=== PATIENT | male | born 1960 | race Caucasian/White ===

== ENCOUNTER → 2016-11-08 | Outpatient (CLI) | payer MEDICARE ==
[~2016-11-08] MED LIST: COUM5TAB PO; LOMO PO; SERO100T PO; SERT-129 OR; SIMV20TA OR; WARF7.5 PO
[2016-11-08 13:15] LABS: AUTOMATED NEUTROPHIL # 4.4 TH/MM3 (1.8-7.7); BASOPHIL # 0.1 TH/MM3 (0-0.2); BASOPHIL % 0.8 % (0.0-2.0); EOSINOPHIL # 0.1 TH/MM3 (0-0.4); HEMATOCRIT 41.2 % (39.0-51.0); HEMO FLAGS DIFF FINAL; LYMPH % 23.6 % (9.0-44.0); LYMPHOCYTE # 1.6 TH/MM3 (1.0-4.8); MEAN CELL VOLUME 83.8 FL (80.0-100.0); MEAN CORPUSCULAR HEMOGLOBIN 28.4 PG (27.0-34.0); MEAN CORPUSCULAR HGB CONC 33.9 % (32.0-36.0); NEUT % 63.6 % (16.0-70.0); PLATELET COUNT 233 TH/MM3 (150-450); RED BLOOD COUNT 4.92 MIL/MM3 (4.50-5.90); RED CELL DISTRIBUTION WIDTH 13.2 % (11.6-17.2); WHITE BLOOD COUNT 6.8 TH/MM3 (4.0-11.0)
[2016-11-08 13:36] LABS: ANION GAP 7 MEQ/L (5-15); AST (GOT) 17 U/L (15-37); BICARBONATE 23.9 MEQ/L (21.0-32.0); BLOOD UREA NITROGEN 16 MG/DL (7-18); CHLORIDE 105 MEQ/L (98-107); GLOMERULAR FILTRATION RATE 106 ML/MIN (>89); GLUCOSE,FASTING 85 MG/DL (74-99); POTASSIUM 3.7 MEQ/L (3.5-5.1); SODIUM (NA) 136 MEQ/L (136-145)
[2016-11-08 13:42] LABS: ALKALINE PHOSPHATASE 96 U/L (45-117); ALT (GPT) 30 U/L (12-78); TOTAL BILIRUBIN ADULT 0.7 MG/DL (0.2-1.0)
--- NOTE | 2016-11-09 13:03 | EKG ---
Date Performed: 11/08/2016 Time Performed: 12:37:39 PTAGE: 55 years EKG: Sinus rhythm WITH SINUS ARRHYTHMIA Compared to previous tracing, previously seen T wave changes have improved NOR MAL ECG PREVIOUS TRACING : 03/17/2010 13.07 DOCTOR: Ravinder Lopez Interpretating Date/Time 11/09/2016 13:02:46
== END ==
LOC: CLAB 11:36
DX: F90.2 Attention-deficit hyperactivity disorder, combined type (principal); F31.9 Bipolar disorder, unspecified; I49.8 Other specified cardiac arrhythmias
CPT/HCPCS: 36415; 80053; 84146; 85025; 93005

== ENCOUNTER 2017-02-13 10:00 | Inpatient (IN) | payer MEDICARE, OTHER ==
[~2017-02-13] VITALS: Ht 167.6 cm; Wt 90.0 kg
[2017-02-13 10:02] VITALS: BP 143/68; PULSE 48; RESP 15; TEMP 98.4; O2SAT 96
--- NOTE | 2017-02-13 10:42 | PD ---
HPI Chief Complaint: Injury Time Seen by Provider: 10:39 Travel History International Travel<30 days: No Contact w/Intl Traveler<30days: No Traveled to known affect area: No History of Present Illness HPI 56-year-old male presents to emergency Department with complaint of left lateral ankle pain after slipping on wet concrete falling. He denies hitting his head or loss of consciousness. Denies neck pain or back pain. Denies chest pain, shortness breath, abdominal pain, vomiting. Denies lightheaded, dizziness, headache. Denies anticoagulant therapy. Denies other extremity pain. Rates pain 7/10. Describes it as a throbbing sensation. Unable to ambulate on the affected extremity. Denies paresthesias, loss of sensation to the affected extremity. Has not taken any medications to alleviate his symptoms. Has ice pack to the left ankle. Pain is aggravated with palpation and movement. Has no other medical complaints. No known allergies. No other modifying factors or associated signs and symptoms. PFSH Past Medical History Arthritis: No Asthma: No Autoimmune Disease: No Blood Disorders: No Anxiety: No Depression: No Heart Rhythm Problems: No Cancer: No Cardiovascular Problems: No High Cholesterol: Yes Chest Pain: No Congestive Heart Failure: No COPD: No Cerebrovascular Accident: No Diabetes: No Diminished Hearing: No Endocrine: No Glaucoma: No Genitourinary: No Headaches: No Hepatitis: No Hiatal Hernia: No Hypertension: No Immune Disorder: No Kidney Stones: No Musculoskeletal: No Neurologic: Yes Psychiatric: Yes Reproductive: No Respiratory: No Migraines: No Myocardial Infarction: No Renal Failure: No Seizures: Yes Sickle Cell Disease: No Sleep Apnea: No Thyroid Disease: No Ulcer: No Past Surgical History Abdominal Surgery: No AICD: No Appendectomy: No Arteriovenous Shunt: No Cholecystectomy: No Ear Surgery: No Eye Surgery: Yes (cataract sx left eye. blind in rt eye.) Genitourinary Surgery: No Gynecologic Surgery: No Insulin Pump: No Joint Replacement: No Oral Surgery: No Pacemaker: No Thoracic Surgery: No Other Surgery: Yes Social History Alcohol Use: No Tobacco Use: No Substance Use: No Allergies-Medications (Allergen,Severity, Reaction): Coded Allergies: No Known Allergies (Verified , 05/27/10) Reported Meds & Prescriptions Reported Meds & Active Scripts Active Reported Coumadin (Warfarin Sodium) 7.5 Mg Tab 7.5 Mg PO M,T,W,TH,F Coumadin (Warfarin Sodium) 5 Mg Tab 5 Mg PO SAT,SUN Seroquel (Quetiapine Fumarate) 100 Mg Tab 100 Mg PO HS Sertraline Hcl (Sertraline HCl) 100 Mg Tab 100 Mg OR DAILY Simvastatin 20 Mg Tab 20 Mg OR DAILY Lomotil (Diphenoxylate HCl/Atropine) 1 Tab Tab 2 Tab PO DIRECTED Review of Systems Except as stated in HPI: all other systems reviewed are Neg Physical Exam Narrative GENERAL: Well-nourished, well-developed male patient, in no acute distress SKIN: Warm and dry. HEAD: Atraumatic. Normocephalic. EYES: Pupils equal and round. No scleral icterus. No injection or drainage. ENT: Mucosa pink and moist. Airway patent. NECK: Trachea midline. CARDIOVASCULAR: Regular rate. RESPIRATORY: No accessory muscle use. GASTROINTESTINAL: Rounded. MUSCULOSKELETAL: Left ankle with point tenderness to the lateral malleolar zone with palpation; mild edema noted; without erythema or ecchymosis; no obvious deformity. Left Lower extremity is supple and nontense with 2+ pedal pulse and sensory intact. No obvious deformities. No clubbing. No cyanosis. No edema. NEUROLOGICAL: Awake and alert. Oriented 3. No obvious cranial nerve deficits. Motor grossly within normal limits. Normal speech. PSYCHIATRIC: Appropriate mood and affect; insight and judgment normal. Data Data Last Documented VS Vital Signs Date Time Temp Pulse Resp B/P (MAP) Pulse Ox O2 Delivery O2 Flow Rate FiO2 02/13/17 10:02 98.4 48 15 143/68 (93) 96 Orders Orders Ankle, Complete ([id number]) (02/13/17 10:38) Ice/Cold Pack (02/13/17 10:38) Ibuprofen (Motrin) (02/13/17 10:45) Crutches (02/13/17 10:38) Brace Ankle Stirrup (02/13/17 ) Tibia/Fibula (Ap/Lat) (02/13/17 12:13) Basic Metabolic Panel (Bmp) (02/13/17 12:13) Complete Blood Count With Diff (02/13/17 12:13) Prothrombin Time / Inr (Pt) (02/13/17 12:13) Act Partial Throm Time (Ptt) (02/13/17 12:13) Iv Access Insert/Monitor (02/13/17 12:13) Sodium Chloride 0.9% Flush (Ns Flush) (02/13/17 12:15) Chest, Single Ap (02/13/17 12:13) Npo After Midnight W/ Po Meds (02/13/17 Lunch) Splint Or Brace Apply/Monitor (02/13/17 12:15) Admit Order (Ed Use Only) (02/13/17 12:32) Consult Orthopedic (02/13/17 ) [facility] Medical Decision Making Medical Screen Exam Complete: Yes Emergency Medical Condition: Yes Medical Record Reviewed: Yes Differential Diagnosis Fall, ankle sprain, ankle fracture, ankle injury Narrative Course 56-year-old male with left ankle injury after mechanical slip and fall. Denies hitting his head or loss of consciousness. Denies neck pain or back pain. Denies anticoagulant therapy. Ibuprofen administered in the ER. Left ankle x- ray ordered. 1118: Left ankle x-ray concludes oblique mildly displaced fracture involving the distal shaft of the tibia. Call placed to benefits consultant orthopedic surgeon. 1212: I spoke with Dr. Gardiner's PA, Dewayne, and he recommended the patient to be admitted for surgery tomorrow, nothing by mouth after midnight, x-ray of tib/ fib and Gardiner splint applied. Orders and preop orders entered. Call placed for patient admission. 1234: Spoke with resident Colin and report given. Patient admitted for observation. Consult to Dr. Gardiner entered. Physician Communication Physician Communication MARY Buchanan of Dr. Gardiner; Resident MD Diagnosis Primary Impression: Left tibial fracture Qualified Codes: S82.232A - Displaced oblique fracture of shaft of left tibia , initial encounter for closed fracture Admitting Information Admitting Physician Requests: Observation Annalise Sanchez Feb 13, 2017 10:42
[2017-02-13] MEDS ORDERED: IBUPROFEN 800 MG TAB PO ONE (10:45)
--- NOTE | 2017-02-13 11:03 | RADRPT ---
EXAM DATE/TIME: 02/13/2017 10:54 [facility] COMPARISON: No previous studies available for comparison. INDICATIONS : Left ankle pain after fall this morning. MEDICAL HISTORY : None. SURGICAL HISTORY : None. ENCOUNTER: Initial ACUITY: 1 day PAIN SCORE: 10/10 LOCATION: Left ankle FINDINGS: Three view exam was performed of the left ankle. There is a an oblique displaced fracture through the distal shaft of the tibia. There is approximately 1 cm displacement of the fracture fragments. No viral int dislocation. The fibula is grossly intact. There is good Alignment at the mortise joint. Nonspeci fic calcifications associated with the Achilles tendon posteriorly. CONCLUSION: Oblique mildly displaced fracture involving the distal shaft of the tibia. Yayo Griffin MD on February 13, 2017 at 10:59 Board Certified Radiologist. This report was verified electronically.
[2017-02-13] MEDS ORDERED: SODIUM CHLORIDE 0.9% FLUSH 10 ML FLUSH IV FLUSH PRN ×2 (12:15→13:45)
--- NOTE | 2017-02-13 12:42 | RADRPT ---
EXAM DATE/TIME: 02/13/2017 12:35 [facility] COMPARISON: No previous studies available for comparison. INDICATIONS : Evaluate for pneumonia, pneumothorax or communicable disease. Left tib/fib surgery MEDICAL HISTORY : None. SURGICAL HISTORY : None. ENCOUNTER: Initial ACUITY: 1 day PAIN SCORE: 0/10 LOCATION: Bilateral chest FINDINGS: A single view of the chest demonstrates the lungs to be symmetrically aerated without evidence of mas s, infiltrate or effusion. The cardiomediastinal contours are unremarkable. Osseous structures are intact. CONCLUSION: No acute disease. Nii Rodriguez MD on February 13, 2017 at 12:40 Board Certified Radiologist. This report was verified electronically.
[2017-02-13] MEDS ORDERED: SERT-129 PO (13:08)
[2017-02-13 13:11] VITALS: BP 146/67; PULSE 62; RESP 17; TEMP 97.8; O2SAT 99
--- NOTE | 2017-02-13 13:17 | RADRPT ---
EXAM DATE/TIME: 02/13/2017 12:38 [facility] COMPARISON: No previous studies available for comparison. INDICATIONS : Slipped and fell today. MEDICAL HISTORY : None. SURGICAL HISTORY : None. ENCOUNTER: Initial ACUITY: 1 day PAIN SCORE: 10/10 LOCATION: Left tib/fib FINDINGS: There is evidence of an acute displaced oblique fracture involving the distal third of the left tibia . There is also an acutely mildly displaced comminuted fracture involving the proximal fibula. Calc ifications are noted in the expected region of the Achilles tendon. Plantar calcaneal spurs are note d. CONCLUSION: 1. Acute mildly displaced oblique fracture involving the distal third of the left tibia. 2. Acute displaced comminuted fracture involving the left proximal fibula. 3. Calcifications involving the Achilles tendon consistent with calcific tendinitis. 4. Small plantar calcaneal spurs. Nii Rodriguez MD on February 13, 2017 at 12:43 Board Certified Radiologist. This report was verified electronically.
[2017-02-13] MEDS ORDERED: ZANT150T2 PO (13:25)
[2017-02-13] MEDS ORDERED: HYDR1CAP30 PO (13:25)
[2017-02-13] MEDS ORDERED: TRIL150T PO (13:25)
[2017-02-13] MEDS ORDERED: ZOCO40TA PO (13:25)
--- NOTE | 2017-02-13 13:27 | HHI.HP ---
[facility] Service Family Medicine Primary Care Physician Maru Mario MD Admission Diagnosis left tibia fracture Diagnoses: International Travel<30 Days: No Contact w/Intl Traveler<30days: No Known Affected Area: No History of Present Illness Patient is a 56 y/o M w/hx of warfarin use who presents with distal left tibial fracture. States he was 50 yards from where he works this AM and slipped and fell on pavement. No bleeding or visible dislocation. Brought by EMS. Pain is 10/10. Fell on his backside. Did not hit his head, pain is only in the left lower leg. No visual changes or headache. No numbness or tingling. Denies heart attack, stroke hx. Only had surgery on leg in the past for clot after which he took Warfarin. States his Warfarin was D/c'd years ago. Has not had any clots since. Has two roommates and lives in a house in [place]. Roommates help with medication use. Dr. Mario is his PCP. (Diane Millard MD R1) Review of Systems Constitutional: DENIES: Diaphoretic episodes, Fever Endocrine: DENIES: Polydipsia, Polyuria Eyes: DENIES: Eye pain, Vision loss Ears, nose, mouth, throat: DENIES: Hearing loss, Nasal discharge Respiratory: DENIES: Cough, Shortness of breath Cardiovascular: DENIES: Chest pain, Dyspnea on Exertion Gastrointestinal: DENIES: Abdominal pain, Constipation Genitourinary: DENIES: Urinary incontinence Musculoskeletal: DENIES: Muscle aches, Stiffness Integumentary: DENIES: Abnormal pigmentation, Pruritus Hematologic/lymphatic: DENIES: Bruising, Lymphadenopathy Immunologic/allergic: DENIES: Eczema Neurologic: DENIES: Headache, Seizures Psychiatric: DENIES: Confusion, Mood changes (Diane Millard MD R1) Past Family Social History Past Medical History Depression Anxiety HLD Seizures Hx of left leg thrombus Past Surgical History Leg surgery, does not remember why or when (Diane Millard MD R1) Allergies: Coded Allergies: No Known Allergies (Verified , 02/13/17) Family History Dad: passed at age 81, COPD Social History No smoking or drinking or drugs. (Diane Millard MD R1) Physical Exam Vital Signs Vital Signs Date Time Temp Pulse Resp B/P (MAP) Pulse Ox O2 Delivery O2 Flow Rate FiO2 02/13/17 13:11 97.8 62 17 146/67 (93) 99 Room Air 02/13/17 10:02 98.4 48 15 143/68 (93) 96 Physical Exam GENERAL: This is a well-nourished, well-developed patient, in no apparent distress. SKIN: Cool and dry. HEAD: Atraumatic. Normocephalic. EYES: Pupils equal round and reactive. Extraocular motions intact. No scleral icterus. ENT: Airway patent. NECK: Trachea midline. CARDIOVASCULAR: Regular rate and rhythm without murmurs, gallops, or rubs. RESPIRATORY: Clear to auscultation. Breath sounds equal bilaterally. GASTROINTESTINAL: Abdomen soft, non-tender, nondistended. MUSCULOSKELETAL: Left leg wrapped in ELADIO-wrap and split. Swelling of the toes noted. Sensation to touch of toes intact. NEUROLOGICAL: Awake and alert. Motor and sensory grossly within normal limits. Normal speech. (RyleedDiane MD R1) Caprini VTE Risk Assessment Caprini VTE Risk Assessment: Mod/High Risk (score >= 2) Caprini Risk Assessment Model Point Value = 1 Point Value = 2 Point Value = 3 Point Value = 5 Age 41-60 Minor surgery BMI > 25 kg/m2 Swollen legs Varicose veins or History of unexplained or recurrent spontaneous Oral contraceptives or hormone replacement Sepsis (< 1 month) Serious lung disease, including pneumonia (< 1 month) Abnormal pulmonary function Acute myocardial infarction Congestive heart failure (< 1 month) History of inflammatory bowel disease Medical patient at bed rest Age 61-74 Arthroscopic surgery Major open surgery (> 45 min) Laparoscopic surgery (> 45 min) Malignancy Confined to bed (> 72 hours) Immobilizing plaster cast Central venous access Age >= 75 History of VTE Family history of VTE Factor V Leiden Prothrombin [id number] Lupus anticoagulant Anticardiolipin antibodies Elevated serum homocysteine Heparin-induced thrombocytopenia Other congenital or acquired thrombophilia Stroke (< 1 month) Elective arthroplasty Hip, pelvis, or leg fracture Acute spinal cord injury (< 1 month) Prophylaxis Regimen Total Risk Factor Score Risk Level Prophylaxis Regimen 0-1 Low Early ambulation 2 Moderate Order ONE of the following: *Sequential Compression Device (SCD) *Heparin 5000 units SQ BID 3-4 Higher Order ONE of the following medications: *Heparin 5000 units SQ TID *Enoxaparin/Lovenox 40 mg SQ daily (WT < 150 kg, CrCl > 30 mL/min) *Enoxaparin/Lovenox 30 mg SQ daily (WT < 150 kg, CrCl > 10-29 mL/min) *Enoxaparin/Lovenox 30 mg SQ BID (WT < 150 kg, CrCl > 30 mL/min) AND/OR *Sequential Compression Device (SCD) 5 or more Highest Order ONE of the following medications: *Heparin 5000 units SQ TID (Preferred with Epidurals) *Enoxaparin/Lovenox 40 mg SQ daily (WT < 150 kg, CrCl > 30 mL/min) *Enoxaparin/Lovenox 30 mg SQ daily (WT < 150 kg, CrCl > 10-29 mL/min) *Enoxaparin/Lovenox 30 mg SQ BID (WT < 150 kg, CrCl > 30 mL/min) AND *Sequential Compression Device (SCD) (Diane Millard MD R1) Assessment and Plan Assessment and Plan Patient is a 56 y/o M admitted for distal tibial fracture. Plan for OR tomorrow. Code Status FULL Discussed Condition With Dr. Echevarria (Diane Millard MD R1) Attending Attestation THIS CASE WAS DISCUSSED WITH THE RESIDENT PHYSICIANS. I HAVE REVIEWED THE RECORD AND AGREE WITH THE ABOVE NOTE AND PLAN OF CARE WAS DISCUSSED. I HAVE AUTHORIZED THE ORDER FOR ADMISSION TO AN IN-PATIENT STATUS. (Jessica Gutierrez MD) Problem List: (1) Left tibial fracture ICD Codes: S82.202A - Unspecified fracture of shaft of left tibia, initial encounter for closed fracture Status: Acute Plan: XR report shows left distal tibial fracture. - ortho consulted, surgery tomorrow -NPO after midnight - one time heparin dose, hold prophy for surgery tomorrow (2) History of seizures ICD Codes: Z87.898 - Personal history of other specified conditions Plan: con't home trileptal (3) Depression ICD Codes: F32.9 - Major depressive disorder, single episode, unspecified Plan: con't home sertraline (4) Anxiety ICD Codes: F41.9 - Anxiety disorder, unspecified Plan: con't home hydroxyzine (5) HLD (hyperlipidemia) ICD Codes: E78.5 - Hyperlipidemia, unspecified Plan: con't simvastatin (6) FEN Plan: Fluids: NS 130mls/hr Nutrition: NPO after midnight for OR tomorrow Electrolytes: none, as needed DVT Prophy: Dr. Paniagua spoke with Dr. Morris who was in agreement with a one time dose subQheparin GI prophy: not indicated SW Dr. Echevarria (Diane Millard MD R1) Physician Certification 2 Midnight Certification Type: Admission for Inpatient Services Order for Inpatient Services The services are ordered in accordance with Medicare regulations or non- Medicare payer requirements, as applicable. In the case of services not specified as inpatient-only, they are appropriately provided as inpatient services in accordance with the 2-midnight benchmark. Estimated LOS (days): 2 2 days is the estimated time the patient will need to remain in the hospital, assuming treatment plan goals are met and no additional complications. Post-Hospital Plan: Home (Diane Millard MD R1) 2 Midnight Certification Type: Admission for Inpatient Services Post-Hospital Plan: Home (Jessica Gutierrez MD) Problem Qualifiers (1) Left tibial fracture: Qualified Codes: S82.232A - Displaced oblique fracture of shaft of left tibia, initial encounter for closed fracture Diane Millard MD R1 Feb 13, 2017 13:27 Jessica Gutierrez MD Feb 14, 2017 14:14
[2017-02-13] MEDS ORDERED: MAGNESIUM HYDROXIDE SUSP 30 ML CUP PO PRN (13:45)
[2017-02-13] MEDS ORDERED: MORPHINE SULFATE 4 MG/ML INJ IV PUSH PRN (13:45)
[2017-02-13] MEDS ORDERED: hydrOXYzine PAMOATE 25 MG CAP PO PRN (13:45)
[2017-02-13] MEDS ORDERED: NALOXONE HCL 0.4 MG/ML AMP IV PUSH PRN ×2 (13:45)
[2017-02-13] MEDS ORDERED: ACETAMINOPHEN/HYDROcodone 325 MG/5 MG TAB PO PRN (13:45)
[2017-02-13] MEDS ORDERED: ACETAMINOPHEN 325 MG TAB PO PRN (13:45)
[2017-02-13] MEDS ORDERED: LORazepam 2 MG/ML VIAL IV PUSH PRN (13:45)
[2017-02-13] MEDS ORDERED: SENNOSIDES 8.6 MG TAB PO PRN (13:45)
[2017-02-13 14:09] LABS: AUTOMATED NEUTROPHIL # 9.8 TH/MM3 (1.8-7.7); BASOPHIL % 0.3 % (0.0-2.0); HEMATOCRIT 40.3 % (39.0-51.0); HEMO FLAGS DIFF FINAL; LYMPHOCYTE # 0.4 TH/MM3 (1.0-4.8); MEAN CELL VOLUME 85.7 FL (80.0-100.0); MEAN CORPUSCULAR HEMOGLOBIN 29.6 PG (27.0-34.0); MEAN CORPUSCULAR HGB CONC 34.6 % (32.0-36.0); MONO % 2.9 % (0.0-8.0); NEUT % 92.8 % (16.0-70.0); PLATELET COUNT 208 TH/MM3 (150-450); RED CELL DISTRIBUTION WIDTH 13.5 % (11.6-17.2); WHITE BLOOD COUNT 10.6 TH/MM3 (4.0-11.0)
[2017-02-13 14:17] LABS: APTT (PATIENT) 25.7 SEC (24.3-30.1); PROTHROMBIN TIME - PATIENT 11.3 SEC (9.8-11.6)
[2017-02-13 14:26] LABS: BICARBONATE 25.9 MEQ/L (21.0-32.0); POTASSIUM 4.2 MEQ/L (3.5-5.1)
[2017-02-13 15:24] VITALS: BP 138/67; TEMP 97.9
[2017-02-13 16:00] VITALS: BP 117/69; PULSE 67; RESP 16; TEMP 96.9; O2SAT 95
[2017-02-13] MEDS: ACETAMINOPHEN/HYDROcodone 325 MG/7.5 MG TAB PO PRN ×2 (17:45→22:03)
[2017-02-13] MEDS ORDERED: HEPARIN SODIUM - SQ 10,000 UNITS/ML VIAL SQ ONE (20:00)
[2017-02-13 20:15] VITALS: BP 127/74; PULSE 63; RESP 17; TEMP 98.2; O2SAT 95
[2017-02-13] MEDS: DOCUSATE SODIUM 50 MG/SENNA 8.6 MG TAB PO SCH (20:42)
[2017-02-13] MEDS: PRAVASTATIN SOD 80 MG TAB PO SCH (20:42)
[2017-02-13] MEDS: SODIUM CHLORIDE 0.9% FLUSH 10 ML FLUSH IV FLUSH SCH (21:00)
[2017-02-14] MEDS ORDERED: SODIUM CHLOR 0.9% 1000 ML INJ 1,000 ML IV SCH (00:01)
[2017-02-14 00:20] VITALS: BP 120/72; PULSE 59; RESP 16; TEMP 96.8; O2SAT 95
[2017-02-14] MEDS ORDERED: CHLORHEXIDINE GLUCONATE 2 % 1 PACK (2 CLOTHS) TOPICAL PRN (01:45)
[2017-02-14] MEDS ORDERED: POVIDONE IODINE 5% (ANTISEPSIS KIT) 4 APPLICATIONS EACH NARE PRN (01:45)
[2017-02-14] MEDS ORDERED: INSULIN HUMAN REGULAR 1,000 UNITS/10 ML VIAL SQ PRN (01:45)
[2017-02-14] MEDS ORDERED: METOPROLOL TARTRATE 25 MG TAB PO PRN (01:45)
[2017-02-14] MEDS ORDERED: LACTATED RINGER'S 1000 ML IV PRN (01:45)
[2017-02-14] MEDS ORDERED: SODIUM CHLORID 0.9% 500 ML IV PRN (01:45)
[2017-02-14] MEDS: ACETAMINOPHEN/HYDROcodone 325 MG/7.5 MG TAB PO PRN (02:26)
[2017-02-14 04:20] VITALS: BP 140/81; PULSE 62; RESP 17; TEMP 96.9; O2SAT 98
[2017-02-14] MEDS ORDERED: ceFAZolin 2 GM PREMIX 50 ML ONE (07:02)
[2017-02-14] MEDS ORDERED: GENTAMICIN SULFATE 80 MG/2 ML VIAL ONE (07:03)
[2017-02-14] MEDS ORDERED: VANCOMYCIN HCL 1000 MG VIAL ONE (07:03)
[2017-02-14 07:06] VITALS: BP 121/72; PULSE 61; RESP 16; TEMP 96.3; O2SAT 96
--- NOTE | 2017-02-14 07:55 | MB ---
cc: STEW RODRIGUEZ DATE OF CONSULTATION 02/14/2017 REASON FOR CONSULTATION Left tibia shaft fracture. CONSULTING PHYSICIAN Dr. Herrera HISTORY Malcom is a 56-year-old male who was going to work today. He works as a volunteer. He states that it was raining and the pavement was slippery. He fell. His left leg got twisted. He had immediate left leg pain and deformity. He presented to the emergency room where x-rays revealed a left distal tibial shaft fracture. He is currently awake and alert on the orthopedic floor. He complains of left leg pain. He is typically on Coumadin. He is awake and alert. His pain is worse with movement. PAST MEDICAL HISTORY ILLNESSES 1. Depression 2. Anxiety 3. High cholesterol 4. Seizures 5. History of left leg DVT. SURGERIES The patient states he had surgery on his leg, but not does remember what was done. ALLERGIES NO KNOWN DRUG ALLERGIES. MEDICATIONS Please see EMR for a complete list of inpatient medications. FAMILY HISTORY Positive for COPD in his father. SOCIAL HISTORY The patient denies alcohol, tobacco and drug use. He lives with roommates in [place]. REVIEW OF SYSTEMS The patient denies headache, visual changes, neck pain, chest pain, shortness of breath, abdominal pain, nausea, vomiting or recent weight loss. He complains of left leg pain. Pain is worse with movement. PHYSICAL EXAMINATION The patient is a well-developed, well-nourished 56-year male in no acute distress. He is awake and alert. He is alert and x3. VITAL SIGNS: Temperature 96.9, pulse 62, respirations 17, blood pressure 140/81, O2 sat 98% on room air. HEAD: The patient is normocephalic. EYES: Pupils are equal. NECK: Soft and nontender. Trachea is midline. ABDOMEN: Soft, nontender, nondistended. EXTREMITIES: Examination of the bilateral upper extremities reveals no pain with shoulder, elbow or wrist motion. He has intact sensation in all fingers. He has good cap refill in all fingers. Chief Lock Operator strength is +5. Examination of the right leg reveals no pain with hip, knee or ankle motion. Skin is intact. Dorsalis pedis pulse is palpable. Sensation is intact. Examination of the left leg reveals no tenderness in his hip or knee. He is diffusely tender around the tibia. He has mild swelling present. He has good cap refill in his toes. Skin is intact. He has minimal pain with passive range of motion of his toes. X-RAYS X-rays of the left tibia were reviewed. The x-rays reveal a spiral fracture of the distal tibial shaft. IMPRESSION Displaced left tibia fracture. PLAN Treatment option were discussed with the patient. At this point, I would recommend reduction, intramedullary nail fixation of left tibia. The risks of surgery include bleeding, infection, injury to arteries, nerves and blood vessels, nonunion, malunion, painful hardware, as well as medical complications including blood clot, stroke, heart attack and . All questions were answered. I will plan on surgery today. A mid-level provider in my office, nurse practitioner or PA, may see this patient on a follow-up basis and continue to implement the objective of this plan including: Starting or adjusting medications, injections of muscle, tendon, bursa or joints, cast application, orthotic or brace application, physical therapy, further radiographic studies including x-ray, MRI, CT, ultrasounds or bone scan, vascular studies, neurologic studies, or other specialist consultations, and proceeding with surgical management as appropriate. Stew MD ANDREINA Dela Cruz/RODERICK /7:26 AM /7:35 AM
[2017-02-14 08:38] LABS: AUTOMATED NEUTROPHIL # 5.2 TH/MM3 (1.8-7.7); BASOPHIL % 0.5 % (0.0-2.0); EOSINOPHIL # 0.2 TH/MM3 (0-0.4); EOSINOPHIL % 1.9 % (0.0-4.0); HEMATOCRIT 38.8 % (39.0-51.0); HEMO FLAGS DIFF FINAL; LYMPH % 21.5 % (9.0-44.0); LYMPHOCYTE # 1.7 TH/MM3 (1.0-4.8); MEAN CELL VOLUME 86.2 FL (80.0-100.0); MEAN CORPUSCULAR HGB CONC 33.6 % (32.0-36.0); MONO % 9.6 % (0.0-8.0); NEUT % 66.5 % (16.0-70.0); PLATELET COUNT 198 TH/MM3 (150-450); RED CELL DISTRIBUTION WIDTH 13.5 % (11.6-17.2); WHITE BLOOD COUNT 7.8 TH/MM3 (4.0-11.0)
[2017-02-14] MEDS: DOCUSATE SODIUM 50 MG/SENNA 8.6 MG TAB PO SCH ×2 (09:00→21:29)
[2017-02-14] MEDS: OXcarbazepine 150 MG TAB PO SCH (09:00)
[2017-02-14] MEDS: SERTRALINE HCL 100 MG TAB PO SCH (09:00)
[2017-02-14 09:20] LABS: ANION GAP 5 MEQ/L (5-15); AST (GOT) 13 U/L (15-37); BICARBONATE 27.8 MEQ/L (21.0-32.0); BLOOD UREA NITROGEN 14 MG/DL (7-18); CHLORIDE 105 MEQ/L (98-107); GLOMERULAR FILTRATION RATE 120 ML/MIN (>89); POTASSIUM 3.8 MEQ/L (3.5-5.1); SODIUM (NA) 138 MEQ/L (136-145)
[2017-02-14 09:26] LABS: ALKALINE PHOSPHATASE 86 U/L (45-117); ALT (GPT) 23 U/L (12-78); TOTAL BILIRUBIN ADULT 0.4 MG/DL (0.2-1.0)
--- NOTE | 2017-02-14 09:28 | PD.ORT.PN ---
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 Left tibia and left clavicle fractures (Harshal Christiansen Jr.) Objective Vitals Vital Signs Date Time Temp Pulse Resp B/P (MAP) Pulse Ox O2 Delivery O2 Flow Rate FiO2 02/14/17 04:20 96.9 62 17 140/81 (100) 98 02/14/17 00:20 96.8 59 16 120/72 (88) 95 02/13/17 20:15 98.2 63 17 127/74 (91) 95 02/13/17 16:00 96.9 67 16 117/69 (85) 95 02/13/17 15:24 97.9 64 17 138/67 (90) 99 02/13/17 13:11 97.8 62 17 146/67 (93) 99 Room Air 02/13/17 13:00 16 02/13/17 10:02 98.4 48 15 143/68 (93) 96 I/O 02/13/17 02/13/17 02/13/17 02/14/17 02/14/17 02/14/17 07:00 15:00 23:00 07:00 15:00 23:00 Intake Total 240 ml 695 ml 93 ml Output Total 300 ml 450 ml Balance -60 ml 245 ml 93 ml Intake Oral 240 ml 0 ml IV Total 695 ml 93 ml Output Urine Total 300 ml 450 ml # Voids 1 # Bowel Movements 0 0 (Harshal Christiansen Jr.) Result Diagram: 02/14/17 0715 02/14/17 0715 Other Results Laboratory Tests Test 02/13/17 13:30 Prothromb Time International Ratio 1.0 RATIO Prothrombin Time 11.3 SEC (9.8-11.6) Imaging Last 24 hours Impressions Tibia/Fibula X-Ray 02/13/171212 Signed Impressions: Service Date/Time: January 12:38 - CONCLUSION: 1. Acute mildly displaced oblique fracture involving the distal third of the left tibia. 2. Acute displaced comminuted fracture involving the left proximal fibula. 3. Calcifications involving the Achilles tendon consistent with calcific tendinitis. 4. Small plantar calcaneal spurs. Nii Rodriguez MD Chest X-Ray 02/13/171212 Signed Impressions: Service Date/Time: January 12:35 - CONCLUSION: No acute disease. Nii Rodriguez MD Ankle X-Ray 02/13/17 1038 Signed Impressions: Service Date/Time: January 10:54 - CONCLUSION: Oblique mildly displaced fracture involving the distal shaft of the tibia. Yayo Griffin MD Objective Remarks Right upper extremity: Full range of motion neurovascular intact Right lower extremity full range of motion neurovascularly intact Left upper extremity: Pain to palpation over clavicle. Minimal pain with range of motion of shoulder passively. Distally intact sensation with good capillary refills. He is full extension and flexion of fingers. Left lower extremity: No pain to palpation of hip or knee. He does have tenderness over proximal fibula as well as a short leg well-padded splint. Distally he has intact sensation in all his toes. He has good capillary refills and is able to move his toes appropriately (Harshal Christiansen Jr.) Assessment & Plan Assessment and Plan Left tibia fracture Surgery today for intramedullary patricia fixation Nothing by mouth Sign consents Left clavicle fracture Conservative measures with sling and nonweightbearing left upper extremity Follow-up x-rays in 2 weeks Postoperative ability to ambulate with dictated rehabilitation versus home Follow-up appointment with Dr. Gardiner or PA in 2 weeks (Harshal Christiansen Jr.) Assessment and Plan CORRECTION. NO LEFT CLAVICLE FX ON THIS PATIENT. MISTAKEN ENTRY. (Darinel Dietz) Harshal Christiansen Jr. Feb 14, 2017 09:28 Darinel Dietz Feb 14, 2017 10:19
[2017-02-14] MEDS ORDERED: XARE10TA PO (09:54)
[2017-02-14] MEDS ORDERED: HYDR-3583 PO (09:54)
[2017-02-14] MEDS ORDERED: WALKER/ADULT/FO1 MIS (09:54)
--- NOTE | 2017-02-14 09:56 | PD.OP ---
cc: Stew Gardiner MD Operative Report Date of Surgery: Feb 14, 2017 Preoperative Diagnosis: Displaced left tibial shaft fracture Postoperative Diagnosis: Procedure: Left tibia reduction and intramedullary nail fixation Anesthesia: Gen. Surgeon: Stew Gardiner Lens Cutter(s): BA Vasquez PA-C The surgical procedure was assisted by my physician assistant hairstylist. My P.A. presence was necessary throughout this case for the manipulation and positioning of the surgical extremity. My P.A. was assisting me throughout the duration of this procedure. The skill set of a physician assistant hairstylist was medically necessary to complete this procedure. During the surgical case the scheme technician was working at the back table and the physician assistant hairstylist was directly assisting me. Operation and Findings: Implants: ITS [10]mm x [330]mm tibial nail Plan of activity: Toe-touch weightbearing Patient was seen and examined preoperatively. An informed consent was obtained from patient after detailed discussion of risk and benefits. Risks of surgery include bleeding, infection, painful hardware, nonunion, malunion, leg length discrepancy, need for hardware removal, and medical complications associated with anesthesia including blood clots, stroke, heart attack, and were discussed. Operative site was marked. Patient was brought to the operating room placed on or table. Patient received IV antibiotics and was given IV sedation GETA. Operative leg was prepped with alcohol Hibiclens and draped in usual sterile fashion. Timeout procedure was performed Procedure began with reduction of fracture. 2 small incisions were made around the fracture site. A percutaneous clamp was placed. Traction was applied. Fracture was reduced. There was comminution of the fracture. The fracture reduced and excellent alignment was achieved. Fracture clamp was used to aid in reduction. Next a 3 cm incision was made proximal to the patella. Quadriceps tendon was split in line with fibers. Cannulas were placed in the patellofemoral joint to protect the articular surface at all times. A guidepin was placed into the tibia and advanced in the tibial canal. Fluoroscopy was used to confirm appropriate guidepin placement. An opening reamer was used to open the tibial canal. A ball-tipped guidewire was advanced down the tibial canal. Guidepin was passed across the fracture site into the center of the distal tibia. Fluoroscopy confirmed guidepin placement. The nail length was now measured. The fracture was now held in a reduced position and the canal was reamed. The canal was reamed up to appropriate size. A ITS 10 mm x 330 mm nail was now selected. Next the nail was fully seated. Using perfect lower [place] technique 4 distal interlocking screws were placed. Using the insertion handle as a guide 2 proximal interlocking screws were placed. Fluoroscopy confirmed excellent of fracture with well-placed hardware. Incisions and the knee joint were thoroughly irrigated with sterile saline. Fascia was closed with #1 Vicryl , subcutaneous tissues closed with 3-0 Vicryl and skin was closed with reji. Sterile dressings were applied. Patient was awakened and transferred to recovery in stable condition. Stew Gardiner MD Feb 14, 2017 09:56
[2017-02-14] MEDS ORDERED: ONDANSETRON HCL 4 MG/2 ML VIAL IVP PRN (10:00)
[2017-02-14] MEDS ORDERED: diphenhydrAMINE HCL 25 MG CAP PO PRN (10:00)
[2017-02-14] MEDS ORDERED: MORPHINE SULFATE 4 MG/ML INJ IV PUSH PRN (10:00)
[2017-02-14] MEDS ORDERED: DO NOT ADM ANY ANTICOAGULANT DRUGS PRN (10:06)
--- NOTE | 2017-02-14 10:15 | PD.ORT.PN ---
Subjective Subjective Remarks POD 0 s/p IMN left tibia stable in PACU Objective Vitals Vital Signs Date Time Temp Pulse Resp B/P (MAP) Pulse Ox O2 Delivery O2 Flow Rate FiO2 02/14/17 07:06 96.3 61 16 121/72 (88) 96 02/14/17 04:20 96.9 62 17 140/81 (100) 98 02/14/17 00:20 96.8 59 16 120/72 (88) 95 02/13/17 20:15 98.2 63 17 127/74 (91) 95 02/13/17 16:00 96.9 67 16 117/69 (85) 95 02/13/17 15:24 97.9 64 17 138/67 (90) 99 02/13/17 13:11 97.8 62 17 146/67 (93) 99 Room Air 02/13/17 13:00 16 I/O 02/13/17 02/13/17 02/13/17 02/14/17 02/14/17 02/14/17 07:00 15:00 23:00 07:00 15:00 23:00 Intake Total 240 ml 695 ml 893 ml Output Total 300 ml 450 ml 50 ml Balance -60 ml 245 ml 843 ml Intake Oral 240 ml 0 ml IV Total 695 ml 893 ml Output Urine Total 300 ml 450 ml Estimated Blood Loss 50 ml # Voids 1 # Bowel Movements 0 0 Result Diagram: 02/14/17 0715 02/14/1715 Other Results Laboratory Tests Test 02/13/17 13:30 Prothromb Time International Ratio 1.0 RATIO Prothrombin Time 11.3 SEC (9.8-11.6) Imaging Last 24 hours Impressions Tibia/Fibula X-Ray 02/13/171212 Signed Impressions: Service Date/Time: January 12:38 - CONCLUSION: 1. Acute mildly displaced oblique fracture involving the distal third of the left tibia. 2. Acute displaced comminuted fracture involving the left proximal fibula. 3. Calcifications involving the Achilles tendon consistent with calcific tendinitis. 4. Small plantar calcaneal spurs. Nii Rodriguez MD Chest X-Ray 02/13/17 121 Signed Impressions: Service Date/Time: January 12:35 - CONCLUSION: No acute disease. Nii Rodriguez MD Ankle X-Ray 02/13/17 1038 Signed Impressions: Service Date/Time: January 10:54 - CONCLUSION: Oblique mildly displaced fracture involving the distal shaft of the tibia. Yayo Griffin MD Objective Remarks Right upper extremity: Full range of motion neurovascular intact Right lower extremity full range of motion neurovascularly intact Left upper extremity: Pain to palpation over clavicle. Minimal pain with range of motion of shoulder passively. Distally intact sensation with good capillary refills. He is full extension and flexion of fingers. Left lower extremity: dressings clean and dry. intact. NVI Assessment & Plan Assessment and Plan 1) Left tibia fracture s/p IMN - POD 0 -NWB -will order fx boot to be placed on patients ankle -remove boot for ROM but wearing at all times otherwise -daily dressing changes POD 2 -CM for rehab vs home -f/u with [facility] or [facility] in 2 weeks Darinel Dietz Feb 14, 2017 10:15
--- NOTE | 2017-02-14 10:16 | RADRPT ---
EXAM DATE/TIME: 02/14/2017 09:40 [facility] COMPARISON: TIBIA/FIBULA LEFT (AP/LAT), February 13, 2017, 12:38. INDICATIONS : Post-op left tibia intramedullary nail. MEDICAL HISTORY : None. SURGICAL HISTORY : None. ENCOUNTER: Subsequent ACUITY: 2 days PAIN SCORE: Non-responsive. LOCATION: Left tibia. FINDINGS: Status post placement of an intramedullary patricia in the tibia. There is good position and alignment of fracture fragments involving the distal tibia. The hardware is grossly intact.. There is good alignme nt involving fracture involving the proximal fibula. CONCLUSION: Good position and alignment on this postoperative study. Yayo Griffin MD on February 14, 2017 at 10:13 Board Certified Radiologist. This report was verified electronically.
[2017-02-14] MEDS ORDERED: WHEEMIS3 (10:17)
[2017-02-14 11:22] VITALS: BP 139/73; PULSE 65; RESP 17; TEMP 96.2; O2SAT 97
[2017-02-14] MEDS ORDERED: ERGOCALCIFEROL (VIT D2) 50,000 UNIT CAP PO SCH (12:00)
[2017-02-14] MEDS: CALCIUM/VITAMIN D 250 MG/125 U TAB PO SCH ×2 (12:11→17:15)
[2017-02-14] MEDS: ACETAMINOPHEN/HYDROcodone 325 MG/10 MG TAB PO PRN ×3 (12:12→21:30)
[2017-02-14] MEDS: SODIUM CHLORIDE 0.9% FLUSH 10 ML FLUSH IV FLUSH SCH ×2 (12:14→21:00)
--- NOTE | 2017-02-14 12:45 | HHI.FPPN ---
Problem Problem List: (1) Left tibial fracture (2) History of seizures (3) HLD (hyperlipidemia) (4) Depression (5) Anxiety (6) FEN Subjective Subjective 56 yo male with left tibial fracture was admitted for operative management of the fracture. The fracture was from a slip and fall. Ortho evaluated the patient and he was taken to surgery for treatment and he is now post-op and doing well. He states he is worried about pain but otherwise feeling well. Denies chest pain or SOB. Review of Systems Constitutional: DENIES: Diaphoretic episodes, Fever Endocrine: DENIES: Polydipsia, Polyuria Eyes: DENIES: Eye pain, Vision loss Ears, nose, mouth, throat: DENIES: Hearing loss, Nasal discharge Respiratory: DENIES: Cough, Shortness of breath Cardiovascular: DENIES: Chest pain, Dyspnea on Exertion Gastrointestinal: DENIES: Abdominal pain, Constipation Genitourinary: DENIES: Urinary incontinence Musculoskeletal: DENIES: Muscle aches, Stiffness but does have pain in the left leg Integumentary: DENIES: Abnormal pigmentation, Pruritus Hematologic/lymphatic: DENIES: Bruising, Lymphadenopathy Immunologic/allergic: DENIES: Eczema Neurologic: DENIES: Headache, Seizures Psychiatric: DENIES: Confusion, Mood changes Past Family Social History Past Medical History Depression Anxiety HLD Seizures Hx of left leg thrombus following prior orthopedic surgery Past Surgical History Leg surgery, does not remember why or when Allergies: Coded Allergies: No Known Allergies (Verified , 02/13/17) Family History Dad: passed at age 81, COPD Social History No smoking or drinking or drugs. [facility] Objective Objective Last Impressions Tibia/Fibula X-Ray 02/14/17 0000 Signed Impressions: Service Date/Time: Tuesday, February 14, 2017 09:40 - CONCLUSION: Good position and alignment on this postoperative study. Yayo Griffin MD Chest X-Ray 02/13/17 1213 Signed Impressions: Service Date/Time: January 12:35 - CONCLUSION: No acute disease. Nii Rodriguez MD Ankle X-Ray 02/13/17 1038 Signed Impressions: Service Date/Time: January 10:54 - CONCLUSION: Oblique mildly displaced fracture involving the distal shaft of the tibia. Yayo Griffin MD Laboratory Tests - Abnormals Test 02/13/17 13:30 02/14/17 07:15 Neutrophils (%) (Auto) 92.8 % Lymphocytes (%) (Auto) 4.0 % Neutrophils # (Auto) 9.8 TH/MM3 Lymphocytes # (Auto) 0.4 TH/MM3 Random Glucose 110 MG/DL Hematocrit 38.8 % Monocytes (%) (Auto) 9.6 % Calcium Level 8.3 MG/DL Aspartate Amino Transf (AST/SGOT) 13 U/L Vital Signs 02/13/17 02/13/17 02/13/17 02/13/17 13:00 13:11 15:24 16:00 Temp 97.8 97.9 96.9 Pulse 62 64 67 Resp 17 17 16 B/P (MAP) 146/67 (93) 138/67 (90) 117/69 (85) Pulse Ox 99 99 95 O2 Delivery Room Air 02/13/17 02/14/17 02/14/17 02/14/17 20:15 00:20 04:20 07:06 Temp 98.2 96.8 96.9 96.3 Pulse 63 59 62 61 Resp 16 17 16 B/P (MAP) 127/74 (91) 120/72 (88) 140/81 (100) 121/72 (88) Pulse Ox 95 95 98 96 02/14/17 02/14/17 02/14/17 02/14/17 10:08 10:15 10:30 10:40 Temp 98.1 98.1 Pulse 83 80 74 74 Resp 20 20 20 20 B/P (MAP) 173/92 (119) 163/91 (115) 139/82 (101) 139/82 (101) Pulse Ox 93 95 97 97 O2 Delivery Nasal Cannula Nasal Cannula Nasal Cannula Nasal Cannula O2 Flow Rate 2 2 2 2 INTAKE & OUTPUT 02/15/17 07:00 Intake Total 893 ml Output Total 50 ml Balance 843 ml Physical exam O. CONSTITUTIONAL/GEN: normally nourished, in NAD. EYES: conjunctiva normal, PERRLA, EOMI. ENT: Mouth and pharynx normal. NECK: thyroid midline, carotids symmetrical. LUNGS: clear A-P, respiratory effort is normal. CARDIOVASCULAR: RR without murmur or gallop. No significant edema. GI/ABD: soft without masses, without organomegaly. : no CVA tenderness NEURO: No focal deficits. Gait is normal SKIN: color normal, no rashes noted. HEME/LYMPH: no bruising, petechia or significant adenopathy MUSC: back is normal in appearance. left leg bandaged post op -- good sensation and cap refill in his toes. PSYCH/MENTAL STATUS: Alert and oriented x 3. Assessment Assessment: (1) Left tibial fracture Plan: Post-op today -- NWB per ortho. Will need assistance from PT and CM for planning for rehab vs home with HH for PT/rehab. he has h/o postop DVT in the past -- plan for now is xarelto on discharge. Routine post op care with pain control, diet advancement, Incentive spirometer and prophylaxis (2) History of seizures Plan: stable -- continue home meds of trileptal (3) HLD (hyperlipidemia) Plan: stable continue home meds (4) Depression Plan: stable - cont home meds (5) Anxiety Plan: stable - cont home meds (6) FEN Plan: lovenox for now -- anticipate dc on xarelto Assessment 56 year old male with tibial fracture requiring surgical treatment is now postop and doing well. Other medical issues are stable. PLAN PLAN current plan as listed above. Anticipate d/c in 1-2 days once set for rehab vs home and cleared by ortho. Patient was seen and dw resident team -- Dr. Echevarria, Dr. Freeman Gutierrez,Jessica Cuello MD Feb 14, 2017 12:45
[2017-02-14 15:45] VITALS: BP 120/70; PULSE 77; RESP 17; TEMP 97.4; O2SAT 97
[2017-02-14] MEDS: ceFAZolin 2 GM PREMIX 50 ML IV SCH (17:15)
[2017-02-14 20:00] VITALS: BP 123/68; PULSE 79; RESP 17; TEMP 96.4; O2SAT 98
[2017-02-14] MEDS: VANCOMYCIN INJ 1,000 MG in SODIUM CHLOR 0.9% 250 ML INJ 250 ML IV SCH (21:29)
--- NOTE | 2017-02-14 22:03 | EKG ---
Date Performed: 02/13/2017 Time Performed: 14:03:36 PTAGE: 56 years EKG: Sinus rhythm NONSPECIFIC T-WAVE ABNORMALITY BORDERLINE ECG NO PREVIOUS TRACING DOCTOR: Toñito Xavier Interpretating Date/Time 02/14/2017 21:40:09
[2017-02-14] MEDS: PRAVASTATIN SOD 80 MG TAB PO SCH (22:18)
[2017-02-14] MEDS: ENOXAPARIN SODIUM 30 MG/0.3 ML SYRINGE SQ SCH (22:18)
[2017-02-15] VITALS (10 sets, daily range): BP systolic 112–143; BP diastolic 62–86; PULSE 66–84; RESP 16–18; TEMP 96.2–99; O2SAT 93–100
[2017-02-15] MEDS: ACETAMINOPHEN/HYDROcodone 325 MG/10 MG TAB PO PRN ×5 (01:11→17:57)
[2017-02-15] MEDS: ceFAZolin 2 GM PREMIX 50 ML IV SCH ×2 (01:12→08:50)
[2017-02-15 06:22] LABS: AUTOMATED NEUTROPHIL # 5.7 TH/MM3 (1.8-7.7); BASOPHIL % 0.3 % (0.0-2.0); EOSINOPHIL # 0.1 TH/MM3 (0-0.4); EOSINOPHIL % 1.7 % (0.0-4.0); HEMO FLAGS DIFF FINAL; LYMPH % 13.2 % (9.0-44.0); MEAN CELL VOLUME 86.3 FL (80.0-100.0); MEAN CORPUSCULAR HEMOGLOBIN 29.4 PG (27.0-34.0); MEAN CORPUSCULAR HGB CONC 34.1 % (32.0-36.0); NEUT % 72.8 % (16.0-70.0); PLATELET COUNT 188 TH/MM3 (150-450); RED BLOOD COUNT 4.06 MIL/MM3 (4.50-5.90); RED CELL DISTRIBUTION WIDTH 13.2 % (11.6-17.2); WHITE BLOOD COUNT 7.9 TH/MM3 (4.0-11.0)
[2017-02-15 06:44] LABS: ANION GAP 6 MEQ/L (5-15); AST (GOT) 8 U/L (15-37); BICARBONATE 30.5 MEQ/L (21.0-32.0); BLOOD UREA NITROGEN 10 MG/DL (7-18); CHLORIDE 101 MEQ/L (98-107); GLOMERULAR FILTRATION RATE 133 ML/MIN (>89); POTASSIUM 3.8 MEQ/L (3.5-5.1); SODIUM (NA) 137 MEQ/L (136-145)
[2017-02-15 06:46] LABS: ALT (GPT) 20 U/L (12-78)
[2017-02-15 06:47] LABS: ALKALINE PHOSPHATASE 83 U/L (45-117); TOTAL BILIRUBIN ADULT 0.5 MG/DL (0.2-1.0)
--- NOTE | 2017-02-15 08:22 | PD.ORT.PN ---
Subjective Post Op Day #: 1 Subjective Remarks painful. Objective Vitals Vital Signs Date Time Temp Pulse Resp B/P (MAP) Pulse Ox O2 Delivery O2 Flow Rate FiO2 02/15/17 04:00 98.1 70 17 115/62 (79) 99 02/15/17 01:00 99 21 02/15/17 00:00 96.2 77 16 121/64 (83) 98 02/14/17 20:00 96.4 79 17 123/68 (86) 98 02/14/17 15:45 97.4 77 17 120/70 (87) 97 02/14/17 11:22 96.2 65 17 139/73 (95) 97 02/14/17 10:40 98.1 74 20 139/82 (101) 97 Nasal Cannula 2 02/14/17 10:30 74 20 139/82 (101) 97 Nasal Cannula 2 02/14/17 10:15 80 20 163/91 (115) 95 Nasal Cannula 2 02/14/17 10:08 98.1 83 20 173/92 (119) 93 Nasal Cannula 2 I/O 02/14/17 02/14/17 02/14/17 02/15/17 02/15/17 02/15/17 07:00 15:00 23:00 07:00 15:00 23:00 Intake Total 695 ml 893 ml 720 ml 300 ml Output Total 450 ml 50 ml 850 ml Balance 245 ml 843 ml -130 ml 300 ml Intake Oral 0 ml 720 ml IV Total 695 ml 893 ml 300 ml Output Urine Total 450 ml 850 ml Estimated Blood Loss 50 ml # Bowel Movements 0 Result Diagram: 02/15/17 0546 02/15/17 0546 Imaging Last 24 hours Impressions Tibia/Fibula X-Ray 02/13/171212 Signed Impressions: Service Date/Time: January 12:38 - CONCLUSION: 1. Acute mildly displaced oblique fracture involving the distal third of the left tibia. 2. Acute displaced comminuted fracture involving the left proximal fibula. 3. Calcifications involving the Achilles tendon consistent with calcific tendinitis. 4. Small plantar calcaneal spurs. Nii Rodriguez MD Chest X-Ray 02/13/17 121 Signed Impressions: Service Date/Time: January 12:35 - CONCLUSION: No acute disease. Nii Rodriguez MD Ankle X-Ray 02/13/17 1038 Signed Impressions: Service Date/Time: January 10:54 - CONCLUSION: Oblique mildly displaced fracture involving the distal shaft of the tibia. Yayo Griffin MD Objective Remarks Left lower extremity: dressings clean and dry. intact. NVI. cap refill. Assessment & Plan Ortho Post Op Day #: 1 Problem List: Assessment and Plan s/p L IM Tibia Nail POD 1 NWB dressing changes start POD2 lovenox d/c planning home vs snf - patient prefers to go home likely tomorrow f/up 2 weeks Ashu Arredondo Feb 15, 2017 08:22
[2017-02-15] MEDS: DOCUSATE SODIUM 50 MG/SENNA 8.6 MG TAB PO SCH ×2 (08:46→21:09)
[2017-02-15] MEDS: OXcarbazepine 150 MG TAB PO SCH (08:46)
[2017-02-15] MEDS: CALCIUM/VITAMIN D 250 MG/125 U TAB PO SCH ×3 (08:46→17:57)
[2017-02-15] MEDS: CHOLECALCIFEROL (VIT D3) 1000 UNIT TAB PO SCH (08:46)
[2017-02-15] MEDS: SERTRALINE HCL 100 MG TAB PO SCH (08:46)
[2017-02-15] MEDS: ASCORBIC ACID 500 MG TAB PO SCH (08:46)
[2017-02-15] MEDS: VANCOMYCIN INJ 1,000 MG in SODIUM CHLOR 0.9% 250 ML INJ 250 ML IV SCH (08:51)
[2017-02-15] MEDS: SODIUM CHLORIDE 0.9% FLUSH 10 ML FLUSH IV FLUSH SCH ×2 (08:52→21:09)
--- NOTE | 2017-02-15 08:55 | HHI.FPPN ---
Subjective Remarks No acute events overnight. Patient states his pain is at a 10/10 this morning. He otherwise does not have any complaints. Denies fevers/chills, CP, SOB. He states he does not feel comfortable going home today. (Usman Echevarria MD R2) Objective Vitals Vital Signs Date Time Temp Pulse Resp B/P (MAP) Pulse Ox O2 Delivery O2 Flow Rate FiO2 02/15/17 04:00 98.1 70 17 115/62 (79) 99 02/15/17 01:00 99 21 02/15/17 00:00 96.2 77 16 121/64 (83) 98 02/14/17 20:00 96.4 79 17 123/68 (86) 98 02/14/17 15:45 97.4 77 17 120/70 (87) 97 02/14/17 11:22 96.2 65 17 139/73 (95) 97 02/14/17 10:40 98.1 74 20 139/82 (101) 97 Nasal Cannula 2 02/14/17 10:30 74 20 139/82 (101) 97 Nasal Cannula 2 02/14/17 10:15 80 20 163/91 (115) 95 Nasal Cannula 2 02/14/17 10:08 98.1 83 20 173/92 (119) 93 Nasal Cannula 2 I/O 02/14/17 02/14/17 02/14/17 02/15/17 02/15/17 02/15/17 07:00 15:00 23:00 07:00 15:00 23:00 Intake Total 695 ml 893 ml 720 ml 300 ml Output Total 450 ml 50 ml 850 ml Balance 245 ml 843 ml -130 ml 300 ml Intake Oral 0 ml 720 ml IV Total 695 ml 893 ml 300 ml Output Urine Total 450 ml 850 ml Estimated Blood Loss 50 ml # Bowel Movements 0 (Usman Echevarria MD R2) Result Diagram: 02/15/1746 02/15/1746 Objective Remarks GENERAL: NAD, lying comfortably in bed NEURO: Alert. Normal speech. fire patroller grossly intact. SKIN: Warm and dry. No rashes or erythema. HEAD: Normocephalic. Atraumatic. EYES: EOMI. No scleral icterus. No injection or drainage. ENT: No nasal drainage. Moist mucous membranes. No oral ulcers or lesions. NECK: Supple, trachea midline. CARDIOVASCULAR: Regular rate and rhythm without murmurs, rubs, or gallops RESPIRATORY: Breath sounds clear to auscultation and equal bilaterally, without wheezes, rales, or rhonchi. No accessory muscle use. GASTROINTESTINAL: Abdomen soft, nontender, nondistended, normal BS. MUSCULOSKELETAL: No lower extremity edema of right leg. Leg leg wrapped in ELADIO bandage. (Usman Echevarria MD R2) A/P Assessment and Plan Patient is a 56 y/o M admitted for distal tibial fracture s/p Discharge Planning Anticipate discharge home tomorrow with [facility] for PT and nursing for dressing changes Follow up with orthopedic surgery, Dr. Morris in 2 weeks and PCP (Usman Echevarria MD R2) Attending Attestation Patient seen and examined. Case reviewed and discussed with the resident team. Agree with plan of care as discussed with me and documented in the resident note. (Jessica Gutierrez MD) Problem List: (1) Left tibial fracture ICD Codes: S82.202A - Unspecified fracture of shaft of left tibia, initial encounter for closed fracture Status: Acute Plan: Left distal tibial fracture Orthopedic surgery consulted Patient is POD#1 s/p left tibia reduction and intramedullary nail fixation Increase pain control - Xenia 5/325 prn pain 3-5 - Xenia 10/325 prn pain 6-8 - Percocet 10/325 prn pain 9-10 Continue wai-colace 1 tab po bid Milk of mag prn PT recommending home with home health care to continue PT Follow up with orthopedic surgery in 2 weeks Daily dressing changes to start POD #2 per ortho Continue ergocalciferol 50,000 units po q7d (2) Anemia ICD Codes: D64.9 - Anemia, unspecified Plan: Postop Hgb today is 11.9 from 13.0 yesterday Likely appropriate post-surgical decline Will continue to trend and start further workup if indicated (3) History of seizures ICD Codes: Z87.898 - Personal history of other specified conditions Status: Chronic Plan: con't home trileptal (4) Depression ICD Codes: F32.9 - Major depressive disorder, single episode, unspecified Status: Chronic Plan: con't home sertraline (5) Anxiety ICD Codes: F41.9 - Anxiety disorder, unspecified Status: Chronic Plan: con't home hydroxyzine (6) HLD (hyperlipidemia) ICD Codes: E78.5 - Hyperlipidemia, unspecified Plan: con't simvastatin (7) FEN Plan: Fluids: PO Nutrition: Regular Electrolytes: WNL DVT Prophy: Lovenox while inpatient, Xarelto 10 mg po daily for 2 weeks once outpatient GI prophy: not indicated (Usman Echevarria MD R2) Problem Qualifiers (1) Left tibial fracture: Qualified Codes: S82.232A - Displaced oblique fracture of shaft of left tibia, initial encounter for closed fracture Usman Echevarria MD R2 Feb 15, 2017 08:55 Jessica Gutierrez MD Feb 16, 2017 09:02
[2017-02-15] MEDS: LACTATED RINGER'S 1000 ML INJ 1,000 ML IV SCH ×3 (08:58→23:42)
[2017-02-15] MEDS ORDERED: ACETAMINOPHEN/HYDROcodone 325 MG/5 MG TAB PO PRN (10:15)
[2017-02-15] MEDS ORDERED: oxyCODONE/ACETAMINOPHEN 10 MG/325 MG TAB PO PRN (10:15)
[2017-02-15] MEDS: ENOXAPARIN SODIUM 30 MG/0.3 ML SYRINGE SQ SCH ×2 (10:29→21:09)
[2017-02-15] MEDS: PRAVASTATIN SOD 80 MG TAB PO SCH (21:09)
[2017-02-16 06:36] LABS: BICARBONATE 29.1 MEQ/L (21.0-32.0); POTASSIUM 3.9 MEQ/L (3.5-5.1)
[2017-02-16 06:39] LABS: HEMATOCRIT 33.5 % (39.0-51.0); MEAN CELL VOLUME 86.6 FL (80.0-100.0); MEAN CORPUSCULAR HEMOGLOBIN 29.3 PG (27.0-34.0); MEAN CORPUSCULAR HGB CONC 33.9 % (32.0-36.0); PLATELET COUNT 183 TH/MM3 (150-450); RED BLOOD COUNT 3.87 MIL/MM3 (4.50-5.90); RED CELL DISTRIBUTION WIDTH 13.7 % (11.6-17.2); REVIEW FLAG FINAL; WHITE BLOOD COUNT 8.7 TH/MM3 (4.0-11.0)
--- NOTE | 2017-02-16 07:39 | PD.ORT.PN ---
Subjective Subjective Remarks Patient resting comfortable this morning. States his pain is well-controlled. He is interested in leaving Objective Vitals Vital Signs Date Time Temp Pulse Resp B/P (MAP) Pulse Ox O2 Delivery O2 Flow Rate FiO2 02/16/17 01:42 Nasal Cannula 2.00 02/15/17 23:16 99.0 73 18 118/67 (84) 93 02/15/17 19:32 94 Nasal Cannula 3.00 02/15/17 19:29 18 02/15/17 19:28 96.7 69 18 123/70 (87) 97 02/15/17 16:00 98.0 78 18 131/69 (89) 98 02/15/17 12:00 98.0 74 18 112/66 (81) 97 02/15/17 10:17 97 Nasal Cannula 3.00 02/15/17 08:00 97.3 84 18 126/67 (86) 97 I/O 02/15/17 02/15/17 02/15/17 02/16/17 02/16/17 02/16/17 07:00 15:00 23:00 07:00 15:00 23:00 Intake Total 300 ml 300 ml 1080 ml 360 ml Output Total 1325 ml 300 ml Balance 300 ml 300 ml -245 ml 60 ml Intake Oral 1080 ml 360 ml IV Total 300 ml 300 ml Output Urine Total 1325 ml 300 ml # Bowel Movements 0 0 Result Diagram: 02/16/17 0510 02/16/17 0510 Imaging Last 24 hours Impressions Tibia/Fibula X-Ray 02/13/17 1213 Signed Impressions: Service Date/Time: January 12:38 - CONCLUSION: 1. Acute mildly displaced oblique fracture involving the distal third of the left tibia. 2. Acute displaced comminuted fracture involving the left proximal fibula. 3. Calcifications involving the Achilles tendon consistent with calcific tendinitis. 4. Small plantar calcaneal spurs. Nii Rodriguez MD Chest X-Ray 02/13/17 1213 Signed Impressions: Service Date/Time: January 12:35 - CONCLUSION: No acute disease. Nii Rodriguez MD Ankle X-Ray 02/13/17 1038 Signed Impressions: Service Date/Time: January 10:54 - CONCLUSION: Oblique mildly displaced fracture involving the distal shaft of the tibia. Yayo Griffin MD Objective Remarks Left lower extremity: dressings clean and dry. intact. NVI. cap refill. Assessment & Plan Assessment and Plan s/p L IM Tibia Nail POD 2 NWB dressing changes start today lovenox d/c planning home vs snf - patient prefers to go home f/up 2 weeks Saira Guillaume MD Feb 16, 2017 07:39
--- NOTE | 2017-02-16 09:11 | HHI.FF ---
Face to Face Verification Diagnosis: (1) Left tibial fracture Physical Therapy Order: Improve ambulation, Strength and gait training Home Health Nursing Order: Wound care and dressing changes I have seen patient Augie Reynaga on 02/16/17. My clinical findings support the need for the requested home health care services because: Limited ability to care for self High risk of falls (Limited mobility) I certify that my clinical findings support that this patient is homebound because: [id number] bed/chair Unable to use public transportation Diane Millard MD R1 Feb 16, 2017 09:11
--- NOTE | 2017-02-16 09:54 | HHI.FPPN ---
Subjective Remarks Patient was afebrile overnight. States that he is doing well, would like to leave today. No acute complaints. (Diane Millard MD R1) Objective Vitals Vital Signs Date Time Temp Pulse Resp B/P (MAP) Pulse Ox O2 Delivery O2 Flow Rate FiO2 02/16/17 01:42 Nasal Cannula 2.00 02/15/17 23:16 99.0 73 18 118/67 (84) 93 02/15/17 19:32 94 Nasal Cannula 3.00 02/15/17 19:29 18 02/15/17 19:28 96.7 69 18 123/70 (87) 97 02/15/17 16:00 98.0 78 18 131/69 (89) 98 02/15/17 12:00 98.0 74 18 112/66 (81) 97 02/15/17 10:17 97 Nasal Cannula 3.00 I/O 02/15/17 02/15/17 02/15/17 02/16/17 02/16/17 02/16/17 07:00 15:00 23:00 07:00 15:00 23:00 Intake Total 300 ml 300 ml 1080 ml 360 ml Output Total 1325 ml 300 ml Balance 300 ml 300 ml -245 ml 60 ml Intake Oral 1080 ml 360 ml IV Total 300 ml 300 ml Output Urine Total 1325 ml 300 ml # Bowel Movements 0 0 (Diane Millard MD R1) Result Diagram: 02/16/17 0510 02/16/17 0510 Objective Remarks GENERAL: NAD, lying comfortably in bed NEURO: Alert. Normal speech. skin drier grossly intact. SKIN: Warm and dry. No rashes or erythema. HEAD: Normocephalic. Atraumatic. EYES: EOMI. No scleral icterus. No injection or drainage. ENT: No nasal drainage. Moist mucous membranes. No oral ulcers or lesions. NECK: Supple, trachea midline. CARDIOVASCULAR: Regular rate and rhythm without murmurs, rubs, or gallops RESPIRATORY: Breath sounds clear to auscultation and equal bilaterally, without wheezes, rales, or rhonchi. No accessory muscle use. GASTROINTESTINAL: Abdomen soft, nontender, nondistended, normal BS. MUSCULOSKELETAL: No lower extremity edema of right leg. Leg leg wrapped in ELADIO bandage. (Diane Millard MD R1) A/P Assessment and Plan Patient is a 56 y/o M admitted for distal tibial fracture s/p left tibia reduction and intramedullary nail fixation Discharge Planning Discharge to care home today with [facility] for PT and nursing for dressing changes Follow up with orthopedic surgery, Dr. Morris in 2 weeks and PCP in 1 week (Diane Millard MD R1) Attending Attestation Patient seen and examined. Case reviewed and discussed with the resident team. Agree with plan of care as discussed with me and documented in the resident note. (Jessica Gutierrez MD) Problem List: (1) Left tibial fracture ICD Codes: S82.202A - Unspecified fracture of shaft of left tibia, initial encounter for closed fracture Status: Acute Plan: Patient is POD#2 s/p left tibia reduction and intramedullary nail fixation Pain control - Castaner 5/325 prn pain 3-5 - Castaner 10/325 prn pain 6-8 - Percocet 10/325 prn pain 9-10 Continue wai-colace 1 tab po bid Milk of mag prn Follow up with orthopedic surgery in 2 weeks Daily dressing changes started today Continue ergocalciferol 50,000 units po q7d (2) Anemia ICD Codes: D64.9 - Anemia, unspecified Plan: Postop Hgb today is 11.4 from 11.9 yesterday Likely due to post-surgery loss Will continue to trend and start further workup if indicated (3) History of seizures ICD Codes: Z87.898 - Personal history of other specified conditions Status: Chronic Plan: con't home trileptal (4) Depression ICD Codes: F32.9 - Major depressive disorder, single episode, unspecified Status: Chronic Plan: con't home sertraline (5) Anxiety ICD Codes: F41.9 - Anxiety disorder, unspecified Status: Chronic Plan: con't home hydroxyzine (6) HLD (hyperlipidemia) ICD Codes: E78.5 - Hyperlipidemia, unspecified Plan: con't simvastatin (7) FEN Plan: Fluids: PO Nutrition: Regular Electrolytes: WNL DVT Prophy: Lovenox while inpatient, Xarelto 10 mg po daily for 2 weeks once outpatient GI prophy: not indicated (Diane Millard MD R1) Problem Qualifiers (1) Left tibial fracture: Qualified Codes: S82.232A - Displaced oblique fracture of shaft of left tibia, initial encounter for closed fracture (2) Anemia: Qualified Codes: D64.89 - Other specified anemias Diane Millard MD R1 Feb 16, 2017 09:54 Jessica Gutierrez MD Feb 17, 2017 09:51
[2017-02-16] MEDS: CALCIUM/VITAMIN D 250 MG/125 U TAB PO SCH ×2 (10:16→13:17)
[2017-02-16] MEDS: DOCUSATE SODIUM 50 MG/SENNA 8.6 MG TAB PO SCH (10:16)
[2017-02-16] MEDS: CHOLECALCIFEROL (VIT D3) 1000 UNIT TAB PO SCH (10:16)
[2017-02-16] MEDS: ENOXAPARIN SODIUM 30 MG/0.3 ML SYRINGE SQ SCH (10:16)
[2017-02-16] MEDS: OXcarbazepine 150 MG TAB PO SCH (10:16)
[2017-02-16] MEDS: ASCORBIC ACID 500 MG TAB PO SCH (10:16)
[2017-02-16] MEDS: SERTRALINE HCL 100 MG TAB PO SCH (10:16)
[2017-02-16] MEDS: SODIUM CHLORIDE 0.9% FLUSH 10 ML FLUSH IV FLUSH SCH (10:19)
[2017-02-16 11:20] VITALS: BP 144/70; PULSE 88; RESP 18; TEMP 98; O2SAT 95
[2017-02-16 12:00] VITALS: BP 132/75; PULSE 86; RESP 18; TEMP 99.1; O2SAT 97
[2017-02-16] MEDS: ACETAMINOPHEN/HYDROcodone 325 MG/10 MG TAB PO PRN (13:17)
[2017-02-16 14:31] VITALS: O2SAT 95
== END 2017-02-16 15:03 | disposition home health service (06) | DRG 494 ==
LOC: NEPK 10:00 → NEDA 12:34 → OBSVTOIN 13:46 → N06B 15:44
PROVIDERS: ADMIT Family Medicine; ATTEND Family Medicine
PROC: 0QSH06Z Reposition Left Tibia with Intramedullary Internal Fixation Device, Open Approach (ICD-10-PCS; principal; 2017-02-14 08:30)
DX: S82.232A Displaced oblique fracture of shaft of left tibia, initial encounter for closed fracture (principal); R56.9 Unspecified convulsions; F32.9 Major depressive disorder, single episode, unspecified; E78.5 Hyperlipidemia, unspecified; D64.9 Anemia, unspecified; F41.9 Anxiety disorder, unspecified; W01.0XXA Fall on same level from slipping, tripping and stumbling without subsequent striking against object, initial encounter; Y92.89 Other specified places as the place of occurrence of the external cause; Z86.718 Personal history of other venous thrombosis and embolism; Z79.01 Long term (current) use of anticoagulants
CPT/HCPCS: 71010; 73590; 73610; 76000; 80048; 80053; 85025; 85027; 85610; 85730; 93005; 94150; E0113; J0690; J1580; J1650; J2270; J3370; J7030; J7050; J7120; L1906; L2114